=== PATIENT | female | born 2000 | race Hispanic/Latino ===

== ENCOUNTER 2023-04-21 09:44 | Emergency (ER) | payer OTHER ==
[~2023-04-21] VITALS: Ht 149.9 cm; Wt 75.3 kg
[2023-04-21 09:45] VITALS: BP 129/64; PULSE 76; RESP 16
[2023-04-21 10:51] LABS: APPEARANCE,URINE CLEAR (CLEAR); BILIRUBIN,URINE NEGATIVE (NEGATIVE); COLOR,URINE YELLOW (YELLOW); GLUCOSE, URINE (UA) NEGATIVE (NEGATIVE); KETONES,URINE NEGATIVE (NEGATIVE); LEUKOCYTE ESTERASE ,URINE 25 Leu/uL (NEGATIVE); NITRATE,URINE NEGATIVE (NEGATIVE); OCCULT BLOOD,URINE NEGATIVE (NEGATIVE); PROTEIN,URINE 30 mg/dL (NEGATIVE); UROBILINOGEN,URINE 0.2 mg/dL (0.2-1.0)
[2023-04-21 10:53] LABS: HCG,QUALITATIVE URINE NEGATIVE (NEGATIVE)
[2023-04-21 10:55] LABS: ADD UA MICROSCOPIC YES
[2023-04-21 10:57] LABS: BACTERIA,URINE FEW /HPF (None Seen); MUCUS,URINE RARE LPF (None Seen); RBC,URINE 0-1 /HPF (0-1); SQUAMOUS EPITHELIAL CELL,UR MOD /HPF (0-2)
== END 2023-04-21 13:24 | disposition left against medical advice (07) ==
LOC: EDH 09:44
DX: R10.9 Unspecified abdominal pain (principal); Z53.21 Procedure and treatment not carried out due to patient leaving prior to being seen by health care provider
CPT/HCPCS: 81001; 81025; 87088; 99281

== ENCOUNTER 2023-07-02 10:33 | Emergency (ER) | payer OTHER ==
[~2023-07-02] VITALS: Ht 149.9 cm; Wt 74.4 kg
[2023-07-02 10:57] VITALS: BP 123/59; PULSE 94; RESP 16; O2SAT 97
[2023-07-02] MEDS ORDERED: CLIN-141 PO (12:51)
== END 2023-07-02 13:03 | disposition home or self-care (01) ==
LOC: EDH 10:33
DX: L81.8 Other specified disorders of pigmentation (principal)